=== PATIENT | female | born 2005 | race Caucasian/White ===

== ENCOUNTER 2023-07-02 01:23 | Emergency (ER) | payer MEDICAID ==
[~2023-07-02] VITALS: Ht 154.9 cm; Wt 63.6 kg
[2023-07-02 01:28] VITALS: TEMP 97
[2023-07-02] MEDS ORDERED: NS 1,000 ML IV ONE (02:10)
[2023-07-02] MEDS ORDERED: ONDANSETRON 4MG 2ML VIAL IV ONE (02:10)
[2023-07-02 03:09] LABS: BASO % 0.2 % (0.0-1.0); EOS % 0.1 % (0.0-3.0); HEMATOCRIT 38.1 % (36.0-47.0); HEMOGLOBIN 12.9 g/dl (12.0-15.5); LYMPH % 7.6 % (24.0-44.0); MEAN CORPUSCULAR HEMOGLOBIN 29.3 pg (27.0-33.0); MEAN CORPUSCULAR HGB CONC 33.9 g/dl (32.0-36.5); MEAN CORPUSCULAR VOLUME 86.6 fl (80.0-96.0); MONO # 0.5 10^3/uL (0.0-0.8); MONO % 3.5 % (2.0-8.0); NEUTROPHILS # 11.6 10^3/uL (1.5-8.5); PLATELET COUNT, AUTOMATED 266 10^3/uL (150-450); WHITE BLOOD COUNT 13.2 10^3/uL (4.0-10.0)
[2023-07-02 03:38] LABS: BLOOD UREA NITROGEN 10 MG/DL (9-23); CALCIUM LEVEL 8.9 MG/DL (8.5-10.1); CARBON DIOXIDE LEVEL 25 MMOL/L (20-31); CHLORIDE LEVEL 108 MMOL/L (98-107); CREATININE FOR GFR 0.66 MG/DL (0.55-1.30); GLUCOSE, FASTING 105 MG/DL (60-100); MAGNESIUM LEVEL 1.7 MG/DL (1.8-2.4); POTASSIUM SERUM 4.2 MMOL/L (3.5-5.1); SODIUM LEVEL 142 MMOL/L (136-145)
[2023-07-02] MEDS ORDERED: MAG SULF 1GM/100ML (MAG RUN) 1 GM in IV 1 EA IV ONE (04:30)
[2023-07-02 06:15] VITALS: BP 110/59
[2023-07-02 06:30] VITALS: O2SAT 97
== END 2023-07-02 06:38 | disposition home or self-care (01) ==
LOC: M ED 01:23
DX: R11.2 Nausea with vomiting, unspecified (principal); E83.42 Hypomagnesemia; F19.10 Other psychoactive substance abuse, uncomplicated; F17.200 Nicotine dependence, unspecified, uncomplicated
CPT/HCPCS: 80048; 83735; 85025; 96365; 96375; 99285; J2405; J3475

== ENCOUNTER 2023-10-17 16:50 | Emergency (ER) | payer MEDICAID, OTHER ==
[~2023-10-17] VITALS: Ht 154.9 cm; Wt 70.8 kg
[2023-10-17 19:02] LABS: CHLAMYDIA DNA AMPLIFICATION NEGATIVE (NEGATIVE); GC DNA AMPLIFICATION NEGATIVE (NEGATIVE)
[2023-10-17 19:08] VITALS: BP 120/68; TEMP 98.2; O2SAT 98
[2023-10-17 19:47] LABS: CHLAMYDIA DNA AMPLIFICATION NEGATIVE (NEGATIVE); GC DNA AMPLIFICATION NEGATIVE (NEGATIVE)
== END 2023-10-17 19:09 | disposition home or self-care (01) ==
LOC: M ED 16:50
DX: L29.2 Pruritus vulvae (principal)

== ENCOUNTER 2023-10-19 09:35 | Emergency (ER) | payer OTHER ==
[~2023-10-19] VITALS: Ht 154.9 cm; Wt 70.4 kg
[2023-10-19] MEDS ORDERED: GNP650TA8 PO (09:59)
[2023-10-19] MEDS ORDERED: ONDANSETRON 4MG 2ML VIAL IV ONE (11:45)
[2023-10-19] MEDS ORDERED: KETOROLAC 30 MG/ML 1ML VIAL IV ONE (11:45)
[2023-10-19] MEDS ORDERED: NS 1,000 ML IV ONE (11:45)
[2023-10-19] MEDS ORDERED: ISOVUE-370 76% 100ML VIAL As Ordered ONE (12:19)
[2023-10-19 12:24] LABS: BASO # 0.1 10^3/uL (0.0-0.2); BASO % 0.7 % (0.0-1.0); EOS # 0.2 10^3/uL (0.0-0.5); EOS % 2.7 % (0.0-3.0); HEMATOCRIT 43.1 % (36.0-47.0); HEMOGLOBIN 14.6 g/dl (12.0-15.5); LYMPH # 2.1 10^3/uL (1.5-5.0); LYMPH % 29.3 % (24.0-44.0); MEAN CORPUSCULAR HEMOGLOBIN 29.8 pg (27.0-33.0); MEAN CORPUSCULAR HGB CONC 33.9 g/dl (32.0-36.5); MONO # 0.5 10^3/uL (0.0-0.8); MONO % 6.6 % (2.0-8.0); NEUTROPHILS # 4.3 10^3/uL (1.5-8.5); NEUTROPHILS % 60.4 % (36.0-66.0); PLATELET COUNT, AUTOMATED 283 10^3/uL (150-450); WHITE BLOOD COUNT 7.1 10^3/uL (4.0-10.0)
[2023-10-19 12:40] LABS: LIPASE 34 U/L (12-53)
[2023-10-19 12:42] LABS: ALKALINE PHOSPHATASE 54 U/L (46-116); ALT/SGPT 13 U/L (7.0-40); AST/SGOT 15 U/L (<34); BILIRUBIN,DIRECT 0.2 MG/DL (<0.4); BILIRUBIN,TOTAL 0.7 MG/DL (0.3-1.2); BLOOD UREA NITROGEN 8 MG/DL (9-23); CALCIUM LEVEL 8.8 MG/DL (8.5-10.1); CARBON DIOXIDE LEVEL 27 MMOL/L (20-31); CHLORIDE LEVEL 108 MMOL/L (98-107); CREATININE FOR GFR 0.61 MG/DL (0.55-1.30); GLUCOSE, FASTING 87 MG/DL (60-100); POTASSIUM SERUM 4.1 MMOL/L (3.5-5.1); SODIUM LEVEL 143 MMOL/L (136-145); TOTAL PROTEIN 7.3 G/DL (5.7-8.2)
[2023-10-19] MEDS ORDERED: KETO10TAB PO (13:25)
[2023-10-19] MEDS ORDERED: ONDA4TAB6 PO (13:25)
[2023-10-19 13:33] VITALS: BP 109/72; TEMP 97.9; O2SAT 100
== END 2023-10-19 13:35 | disposition home or self-care (01) ==
LOC: M ED 09:35
DX: N83.299 Other ovarian cyst, unspecified side (principal); R91.1 Solitary pulmonary nodule; Z88.8 Allergy status to other drugs, medicaments and biological substances
CPT/HCPCS: 74177; 80047; 80048; 80076; 83690; 84702; 85025; 96361; 96374; 96375; 99284; J1885; J2405; Q9967

== ENCOUNTER → 2023-10-24 | Outpatient (REF) ==
[~2023-10-24] MED LIST: GNP650TA8 PO; KETO10TAB PO; ONDA4TAB6 PO
[2023-10-24 16:09] LABS: RSV AMPLIFICATION POSITIVE (NEGATIVE)
== END ==
LOC: M EMP 12:50
PROVIDERS: ATTEND Family Medicine
DX: Z20.822 Contact with and (suspected) exposure to COVID-19 (principal)

== ENCOUNTER 2023-10-25 14:32 | Emergency (ER) | payer OTHER ==
[~2023-10-25] VITALS: Ht 154.9 cm; Wt 69.6 kg
[2023-10-25 17:52] VITALS: BP 113/67; TEMP 98.8; O2SAT 98
== END 2023-10-25 18:01 | disposition home or self-care (01) ==
LOC: M ED 14:32
DX: J20.5 Acute bronchitis due to respiratory syncytial virus (principal); Z88.8 Allergy status to other drugs, medicaments and biological substances

== ENCOUNTER → 2024-03-25 | Outpatient (REF) | payer SELFPAY | LOC: M LAB REF 21:39 | PROVIDERS: ATTEND Physician Assistant | DX: L03.316 Cellulitis of umbilicus (principal) ==

== ENCOUNTER 2024-04-01 07:25 | Emergency (ER) | payer OTHER, SELFPAY ==
[~2024-04-01] VITALS: Ht 154.9 cm; Wt 71.5 kg
[2024-04-01] MEDS ORDERED: CEPH500C (07:34)
[2024-04-01] MEDS: NS 1,000 ML IV ONE (08:13)
[2024-04-01 08:20] LABS: BASO % 0.6 % (0.0-1.0); EOS # 0.2 10^3/uL (0.0-0.5); EOS % 2.3 % (0.0-3.0); HEMATOCRIT 38.7 % (36.0-47.0); HEMOGLOBIN 13.2 g/dl (12.0-15.5); LYMPH # 1.4 10^3/uL (1.5-5.0); MEAN CORPUSCULAR HEMOGLOBIN 29.7 pg (27.0-33.0); MEAN CORPUSCULAR HGB CONC 34.1 g/dl (32.0-36.5); MEAN CORPUSCULAR VOLUME 87.2 fl (80.0-96.0); MONO # 0.5 10^3/uL (0.0-0.8); MONO % 7.6 % (2.0-8.0); NEUTROPHILS # 4.7 10^3/uL (1.5-8.5); NEUTROPHILS % 68.2 % (36.0-66.0); PLATELET COUNT, AUTOMATED 241 10^3/uL (150-450); RED BLOOD COUNT 4.44 10^6/uL (4.00-5.40); WHITE BLOOD COUNT 6.9 10^3/uL (4.0-10.0)
[2024-04-01 08:52] LABS: LIPASE 37 U/L (12-53)
[2024-04-01 08:55] LABS: ALBUMIN 3.5 G/DL (3.2-5.2); ALKALINE PHOSPHATASE 50 U/L (46-116); ALT/SGPT 13 U/L (7.0-40); AST/SGOT 13 U/L (<34); BILIRUBIN,DIRECT 0.2 MG/DL (<0.4); BILIRUBIN,TOTAL 0.6 MG/DL (0.3-1.2); BLOOD UREA NITROGEN 12 MG/DL (9-23); CALCIUM LEVEL 8.6 MG/DL (8.5-10.1); CARBON DIOXIDE LEVEL 26 MMOL/L (20-31); CHLORIDE LEVEL 105 MMOL/L (98-107); CREATININE FOR GFR 0.67 MG/DL (0.55-1.30); GLUCOSE, FASTING 84 MG/DL (60-100); SODIUM LEVEL 137 MMOL/L (136-145); TOTAL PROTEIN 6.4 G/DL (5.7-8.2)
[2024-04-01] MEDS: KETOROLAC 30 MG/ML 1ML VIAL IV ONE (10:30)
[2024-04-01 10:31] LABS: Trichomonas vaginalis (AMP) NOT DETECTED (NEGATIVE)
[2024-04-01 10:55] LABS: GC DNA AMPLIFICATION NEGATIVE (NEGATIVE)
[2024-04-01] MEDS ORDERED: MIRA3350 PO (11:03)
[2024-04-01] MEDS ORDERED: BACT800T5 PO (11:03)
[2024-04-01 11:13] VITALS: BP 118/61; TEMP 97.7; O2SAT 98
== END 2024-04-01 11:15 | disposition home or self-care (01) ==
LOC: M ED 07:25
DX: K59.00 Constipation, unspecified (principal); N39.0 Urinary tract infection, site not specified; N83.209 Unspecified ovarian cyst, unspecified side; R10.9 Unspecified abdominal pain; Z88.8 Allergy status to other drugs, medicaments and biological substances; Z79.2 Long term (current) use of antibiotics; Z79.899 Other long term (current) drug therapy
CPT/HCPCS: 74018; 76830; 76856; 80048; 80076; 81001; 83690; 84702; 85025; 87086; 87661; 87810; 87850; 93976; 96361; 96374; 99284; J1885

== ENCOUNTER 2024-07-19 12:06 | Emergency (ER) | payer SELFPAY ==
[~2024-07-19] VITALS: Ht 154.9 cm; Wt 72.7 kg
[~2024-07-19 12:06] MED LIST changes: +BACT800T5 PO; +CEPH500C; +MIRA3350 PO; +ONDA-282 PO; -ONDA4TAB6 PO
[2024-07-19] MEDS: PHENAZOPYRIDINE 100 MG TAB PO ONE (12:49)
[2024-07-19 13:27] LABS: URINE PREG TEST NEGATIVE (NEGATIVE)
[2024-07-19] MEDS ORDERED: CEPH500C PO (13:39)
[2024-07-19] MEDS ORDERED: PYRI1TAB5 PO (13:39)
[2024-07-19] MEDS: CEPHALEXIN 500 MG CAP PO ONE (13:44)
[2024-07-19 13:49] VITALS: BP 113/74; TEMP 97.9; O2SAT 100
== END 2024-07-19 13:50 | disposition home or self-care (01) ==
LOC: M ED 12:06
DX: N39.0 Urinary tract infection, site not specified (principal); R30.0 Dysuria; Z88.8 Allergy status to other drugs, medicaments and biological substances; Z79.2 Long term (current) use of antibiotics; Z79.899 Other long term (current) drug therapy

== ENCOUNTER 2024-11-18 16:33 | Emergency (ER) | payer OTHER, SELFPAY ==
[~2024-11-18] VITALS: Ht 157.5 cm; Wt 81.6 kg
[~2024-11-18 16:33] MED LIST changes: +CEPH500C PO; +PYRI1TAB5 PO
[2024-11-18 18:51] LABS: BASO # 0.1 10^3/uL (0.0-0.2); BASO % 0.6 % (0.0-1.0); EOS # 0.2 10^3/uL (0.0-0.5); EOS % 1.9 % (0.0-3.0); HEMATOCRIT 35.7 % (36.0-47.0); HEMOGLOBIN 12.2 g/dl (12.0-15.5); LYMPH # 2.5 10^3/uL (1.5-5.0); LYMPH % 23.2 % (24.0-44.0); MEAN CORPUSCULAR HEMOGLOBIN 29.4 pg (27.0-33.0); MEAN CORPUSCULAR HGB CONC 34.2 g/dl (32.0-36.5); MONO # 0.7 10^3/uL (0.0-0.8); NEUTROPHILS # 7.1 10^3/uL (1.5-8.5); PLATELET COUNT, AUTOMATED 280 10^3/uL (150-450); RED BLOOD COUNT 4.15 10^6/uL (4.00-5.40); WHITE BLOOD COUNT 10.6 10^3/uL (4.0-10.0)
[2024-11-18 19:19] LABS: BLOOD UREA NITROGEN 10 MG/DL (9-23); CARBON DIOXIDE LEVEL 24 MMOL/L (20-31); CHLORIDE LEVEL 106 MMOL/L (98-107); CREATININE FOR GFR 0.53 MG/DL (0.55-1.30); GLOMERULAR FILTRATION RATE > 60.0 (>60); GLUCOSE, FASTING 79 MG/DL (60-100); POTASSIUM SERUM 4.1 MMOL/L (3.5-5.1); SODIUM LEVEL 138 MMOL/L (136-145)
[2024-11-18 19:47] LABS: HCG, SERUM QUANTITATIVE 142101.4 MIU/ML (<4.2)
[2024-11-18 20:28] LABS: Trichomonas vaginalis (AMP) NOT DETECTED (NEGATIVE)
[2024-11-18] MEDS: CEFDINIR 300 MG CAP (OMNICEF) PO ONE (20:40)
[2024-11-18 20:53] LABS: GC DNA AMPLIFICATION NEGATIVE (NEGATIVE)
[2024-11-18 23:57] VITALS: BP 126/63; TEMP 97.1; O2SAT 98
[2024-11-19] MEDS ORDERED: CEFD1CAP9 PO (00:21)
[2024-11-19] MEDS ORDERED: PREN1TAB11 PO (00:22)
== END 2024-11-19 00:45 | disposition home or self-care (01) ==
LOC: M ED 16:33
DX: O23.41 Unspecified infection of urinary tract in pregnancy, first trimester (principal); O20.0 Threatened abortion; Z3A.09 9 weeks gestation of pregnancy; Z88.8 Allergy status to other drugs, medicaments and biological substances; Z79.2 Long term (current) use of antibiotics; Z79.810 Long term (current) use of selective estrogen receptor modulators (SERMs); Z79.899 Other long term (current) drug therapy

== ENCOUNTER 2024-11-24 11:27 | Emergency (ER) | payer SELFPAY ==
[~2024-11-24] VITALS: Ht 154.9 cm; Wt 81.2 kg
[~2024-11-24 11:27] MED LIST changes: +CEFD1CAP9 PO; +PREN1TAB11 PO
[2024-11-24] MEDS ORDERED: CLOT1CRE56 TOP (14:25)
[2024-11-24 14:44] VITALS: BP 114/53; TEMP 98.4; O2SAT 99
[2024-11-24 14:55] LABS: Trichomonas vaginalis (AMP) NOT DETECTED (NEGATIVE)
[2024-11-24 15:18] LABS: GC DNA AMPLIFICATION NEGATIVE (NEGATIVE)
== END 2024-11-24 14:47 | disposition home or self-care (01) ==
LOC: M ED 11:27
DX: B37.31 Acute candidiasis of vulva and vagina (principal); Z88.8 Allergy status to other drugs, medicaments and biological substances; Z79.2 Long term (current) use of antibiotics; Z79.899 Other long term (current) drug therapy; Z79.810 Long term (current) use of selective estrogen receptor modulators (SERMs)

== ENCOUNTER 2024-12-15 17:03 | Emergency (ER) | payer MEDICAID ==
[~2024-12-15] VITALS: Ht 157.5 cm; Wt 81.2 kg
[~2024-12-15 17:03] MED LIST changes: +CLOT1CRE56 TOP
[2024-12-15 17:09] VITALS: TEMP 98.5
[2024-12-15 19:09] LABS: BASO % 0.5 % (0.0-1.0); EOS # 0.1 10^3/uL (0.0-0.5); EOS % 1.6 % (0.0-3.0); HEMATOCRIT 33.7 % (36.0-47.0); HEMOGLOBIN 11.6 g/dl (12.0-15.5); LYMPH # 1.4 10^3/uL (1.5-5.0); LYMPH % 18.1 % (24.0-44.0); MEAN CORPUSCULAR HEMOGLOBIN 29.1 pg (27.0-33.0); MEAN CORPUSCULAR HGB CONC 34.4 g/dl (32.0-36.5); MEAN CORPUSCULAR VOLUME 84.5 fl (80.0-96.0); MONO # 0.4 10^3/uL (0.0-0.8); MONO % 5.4 % (2.0-8.0); NEUTROPHILS # 5.7 10^3/uL (1.5-8.5); NEUTROPHILS % 73.8 % (36.0-66.0); PLATELET COUNT, AUTOMATED 291 10^3/uL (150-450); RED BLOOD COUNT 3.99 10^6/uL (4.00-5.40); WHITE BLOOD COUNT 7.7 10^3/uL (4.0-10.0)
[2024-12-15 19:15] LABS: KETONE, URINE AUTO RFX 1+ mg/dL (NEGATIVE); LEUKOCYTE ESTERASE UR AUTO RFX TRACE (NEGATIVE); MUCUS, URINE RFX SMALL (NEGATIVE); NITRITE, URINE AUTO RFX NEGATIVE (NEGATIVE); RBC, URINE AUTO RFX 2 /HPF (0-3); SQUAM EPITHELIAL CELL UR AURFX 2 /HPF (0-6); WBC, URINE AUTO RFX 7 /HPF (0-3)
[2024-12-15 19:21] LABS: LIPASE 40 U/L (12-53)
[2024-12-15 19:23] LABS: ALKALINE PHOSPHATASE 66 U/L (35-104); ALT/SGPT 32 U/L (7.0-40); AMYLASE 85 U/L (30-118); AST/SGOT 30 U/L (<34); BILIRUBIN,DIRECT 0.1 MG/DL (<0.4); BILIRUBIN,TOTAL 0.4 MG/DL (0.3-1.2); BLOOD UREA NITROGEN 10 MG/DL (9-23); CALCIUM LEVEL 8.6 MG/DL (8.5-10.1); CARBON DIOXIDE LEVEL 22 MMOL/L (20-31); CHLORIDE LEVEL 107 MMOL/L (98-107); CREATININE FOR GFR 0.47 MG/DL (0.55-1.30); GLOMERULAR FILTRATION RATE > 60.0 (>60); GLUCOSE, FASTING 79 MG/DL (60-100); POTASSIUM SERUM 3.8 MMOL/L (3.5-5.1); SODIUM LEVEL 139 MMOL/L (136-145); TOTAL PROTEIN 6.5 G/DL (5.7-8.2)
[2024-12-15 19:53] LABS: HCG, SERUM QUANTITATIVE 114449.6 MIU/ML (<4.2)
[2024-12-15] MEDS: diphenhydrAMINE 25MG CAP PO ONE (20:07)
[2024-12-15] MEDS: CEPHALEXIN 500 MG CAP PO ONE (20:07)
[2024-12-15] MEDS: ACETAMINOPHEN 500 MG TAB PO ONE (20:08)
[2024-12-15 20:21] LABS: Trichomonas vaginalis (AMP) NOT DETECTED (NEGATIVE)
[2024-12-15 20:44] LABS: GC DNA AMPLIFICATION NEGATIVE (NEGATIVE)
[2024-12-15] MEDS ORDERED: CEPH500C PO (21:43)
[2024-12-15 21:44] VITALS: BP 95/57; O2SAT 99
== END 2024-12-15 21:58 | disposition home or self-care (01) ==
LOC: M ED 17:03
DX: O23.41 Unspecified infection of urinary tract in pregnancy, first trimester (principal); Z3A.12 12 weeks gestation of pregnancy; Z88.8 Allergy status to other drugs, medicaments and biological substances; Z79.2 Long term (current) use of antibiotics

== ENCOUNTER → 2025-01-05 | Outpatient (REF) | payer MEDICAID ==
[2025-01-05 16:50] LABS: APPEARANCE, URINE HAZY (CLEAR); BACTERIA, URINE AUTO 1+ (NEGATIVE); BILIRUBIN, URINE AUTO NEGATIVE (NEGATIVE); BLOOD, URINE BLOOD NEGATIVE (NEGATIVE); CALCIUM OXALATE CRYSTALS SMALL; COLOR, URINE YELLOW (YELLOW); GLUCOSE, URINE (UA) AUTO NEGATIVE (NEGATIVE); KETONE, URINE AUTO NEGATIVE (NEGATIVE); LEUKOCYTE ESTERASE, URINE AUTO NEGATIVE (NEGATIVE); MUCUS, URINE SMALL (NEGATIVE); NITRITE, URINE AUTO NEGATIVE (NEGATIVE); PROTEIN, URINE AUTO NEGATIVE (NEGATIVE); RBC, URINE AUTO 0 /HPF (0-3); SPECIFIC GRAVITY URINE AUTO 1.025 (1.002-1.035); SQUAMOUS EPITHELIAL CELL UR AU 1 /HPF (0-6); UROBILINOGEN, URINE AUTO 0.2 mg/dL (0.0-2.0); WBC, URINE AUTO 2 /HPF (0-3)
== END ==
LOC: M LAB REF 16:24
PROVIDERS: ATTEND Physician Assistant
DX: N39.0 Urinary tract infection, site not specified (principal)

== ENCOUNTER → 2025-02-10 | Outpatient (CLI) | payer MEDICAID | LOC: M WHC 13:23 | PROVIDERS: ATTEND Advanced Practice Midwife | DX: Z34.02 Encounter for supervision of normal first pregnancy, second trimester (principal) ==

== ENCOUNTER → 2025-03-09 | Outpatient (CLI) | payer OTHER | LOC: M WHC 13:55 | PROVIDERS: ATTEND Advanced Practice Midwife | DX: O36.5920 Maternal care for other known or suspected poor fetal growth, second trimester, not applicable or unspecified (principal) ==

== ENCOUNTER → 2025-03-10 | Outpatient (CLI) | payer MEDICAID, OTHER, SELFPAY | LOC: M WHC 14:49 | PROVIDERS: ATTEND Advanced Practice Midwife | DX: O36.5920 Maternal care for other known or suspected poor fetal growth, second trimester, not applicable or unspecified (principal); Z3A.25 25 weeks gestation of pregnancy ==

== ENCOUNTER → 2025-03-21 | Outpatient (CLI) | payer MEDICAID ==
[2025-03-21 13:44] LABS: HEMATOCRIT 37.9 % (36.0-47.0); HEMOGLOBIN 12.4 g/dl (12.0-15.5); MEAN CORPUSCULAR HEMOGLOBIN 30.3 pg (27.0-33.0); MEAN CORPUSCULAR HGB CONC 32.7 g/dl (32.0-36.5); MEAN CORPUSCULAR VOLUME 92.7 fl (80.0-96.0); PLATELET COUNT, AUTOMATED 269 10^3/uL (150-450); RED BLOOD COUNT 4.09 10^6/uL (4.00-5.40); WHITE BLOOD COUNT 11.1 10^3/uL (4.0-10.0)
[2025-03-21 14:22] LABS: GLUCOSE CHALLENGE TEST 1 HOUR 127 MG/DL (LESS THAN 140)
[2025-03-21 14:44] LABS: Trichomonas vaginalis (AMP) NOT DETECTED (NEGATIVE)
[2025-03-21 15:08] LABS: GC DNA AMPLIFICATION NEGATIVE (NEGATIVE)
[2025-03-21 15:11] LABS: HEPATITIS C VIRUS ABY INDEX 0.02 INDEX (<0.8); HIV 1&2 SCREEN NEGATIVE (NEGATIVE)
== END ==
LOC: M PLALAB 10:21
PROVIDERS: ATTEND Advanced Practice Midwife
DX: Z34.02 Encounter for supervision of normal first pregnancy, second trimester (principal)

== ENCOUNTER → 2025-04-11 | Outpatient (CLI) | payer MEDICAID | LOC: M RAD 11:59 | PROVIDERS: ATTEND Obstetrics & Gynecology | DX: Z34.02 Encounter for supervision of normal first pregnancy, second trimester (principal) ==

== ENCOUNTER → 2025-04-20 | Outpatient (CLI) | payer MEDICAID | LOC: M RAD 12:55 | PROVIDERS: ATTEND Obstetrics & Gynecology | DX: O36.5930 Maternal care for other known or suspected poor fetal growth, third trimester, not applicable or unspecified (principal); Z3A.31 31 weeks gestation of pregnancy ==

== ENCOUNTER 2025-06-01 16:11 | Outpatient (CLI) | payer MEDICAID, OTHER ==
[~2025-06-01] VITALS: Ht 154.9 cm; Wt 103.6 kg
[~2025-06-01 16:11] MED LIST changes: +PRENTAB9 PO
[2025-06-01 16:39] VITALS: BP 127/79
[2025-06-01] MEDS ORDERED: PROB250C PO (16:39)
== END 2025-06-01 17:39 | disposition home or self-care (01) ==
LOC: M LDO 16:11
PROVIDERS: ATTEND Obstetrics & Gynecology
DX: O26.893 Other specified pregnancy related conditions, third trimester (principal); O36.5930 Maternal care for other known or suspected poor fetal growth, third trimester, not applicable or unspecified; N89.8 Other specified noninflammatory disorders of vagina; Z3A.37 37 weeks gestation of pregnancy
CPT/HCPCS: 59025; 76815; G0463

== ENCOUNTER → 2025-06-08 | Outpatient (CLI) | payer MEDICAID, OTHER ==
[~2025-06-08] MED LIST changes: +PROB250C PO
== END ==
LOC: M RAD 10:56
PROVIDERS: ATTEND Advanced Practice Midwife
DX: O36.5930 Maternal care for other known or suspected poor fetal growth, third trimester, not applicable or unspecified (principal)